=== PATIENT | female | born 1980 | race Caucasian/White ===

== ENCOUNTER 2018-02-21 12:41 | Outpatient (CLI) | payer OTHER ==
--- NOTE | 2018-02-21 15:02 | ULT ---
LEFT BREAST ULTRASOUND: Date: 02/21/18 HISTORY: Palpable area in the left breast x8 years. Area is fluctuant and varies with patient's menstrual cycl e. COMPARISON: None. FINDINGS: Targeted sonographic imaging of the left breast is performed. Static images are reviewed. Real-time i maging was performed in the presence of a radiologist. FINDINGS: Static and real-time imaging demonstrated normal breast parenchyma. No solid or cystic masses. No dis tortion or shadowing. IMPRESSION: BIRADS 2: Benign Finding(s). RECOMMENDATION: Patient to return at age 40 for routine screening mammography. With regard to the palpable focus, fur ther evaluation, including additional imaging and/or biopsy, can be based on clinical findings/suspic ion. POS: [facility]
== END 2018-02-21 12:42 | disposition home or self-care (01) ==
LOC: BICMAMMO 12:41
PROVIDERS: ATTEND Obstetrics & Gynecology
DX: N63.0 Unspecified lump in unspecified breast (principal); Z80.3 Family history of malignant neoplasm of breast
CPT/HCPCS: 77066; G0279

== ENCOUNTER 2018-05-28 13:17 | Emergency (ER) | payer OTHER ==
[2018-05-28] MEDS ORDERED: Metoprolol Tartrate 5 MG/5 ML VIAL ONE (13:45)
[2018-05-28 14:14] LABS: ALT (SGPT) 31 U/L (8-55); AST (SGOT) 22 U/L (5-34); Albumin 4.1 g/dL (3.5-5.0); Alkaline Phosphatase 96 U/L (40-150); Anion Gap 14 mmol/L (10-20); BUN (Urea Nitrogen) 7 mg/dL (7.0-18.7); Bilirubin, Total 0.4 mg/dL (0.2-1.2); Calc. Creatinine Clearance 0 mL/min (70-130); Carbon Dioxide 23 mmol/L (22-29); Chloride 107 mmol/L (98-107); Estimated GFR-MDRD 81; Globulin 3.3 g/dL (2.4-3.5); Glucose 98 mg/dL (70-105); Potassium 3.6 mmol/L (3.5-5.1); Protein, Total 7.4 g/dL (6.0-8.3); Sodium 140 mmol/L (136-145)
[2018-05-28 14:40] LABS: #Basophils 0.1 thou/uL (0.0-0.2); #Eosinphils 0.2 thou/uL (0.0-0.7); #Monocytes 0.7 thou/uL (0.11-0.59); #Neutrophils 4.5 thou/uL (1.40-6.50); %Basophils 0.6 % (0.0-1.0); %Eosinophils 1.9 % (0.0-10.0); %Lymphocytes 35.5 % (21.0-51.0); %Monocytes 8.3 % (0.0-10.0); %Neutrophils 53.7 % (42.0-75.0); Hemoglobin 14.7 g/dL (12.0-16.0); Mean Corpuscular HGB CONC 33.7 g/dL (32.0-36.0); Mean Corpuscular Hemoglobin 31.5 pg (27.0-31.0); Mean Corpuscular Volume 93.7 fL (78.0-98.0); Mean Platelet Volume 9.3 fL (7.4-10.4); Platelet Count 207 thou/uL (130-400); RBC Distribution Width 11.5 % (11.5-14.5); Red Blood Cell (RBC) Count 4.65 mill/uL (4.20-5.40); White Blood Cell (WBC) Count 8.4 thou/uL (4.8-10.8)
== END 2018-05-28 14:53 | disposition home or self-care (01) ==
LOC: SCSER 13:17
DX: R00.0 Tachycardia, unspecified (principal); E78.5 Hyperlipidemia, unspecified; Z79.899 Other long term (current) drug therapy
CPT/HCPCS: 80053; 84443; 84484; 85025; 93005; 96361; 96374

== ENCOUNTER 2022-01-04 14:16 | Outpatient (CLI) | payer BC | END 2022-01-04 14:17 | disposition home or self-care (01) | LOC: BICMAMMO 14:16 | PROVIDERS: ATTEND Family Medicine | DX: Z12.31 Encounter for screening mammogram for malignant neoplasm of breast (principal) | CPT/HCPCS: 77063; 77067 ==

== ENCOUNTER 2022-07-15 07:52 | Emergency (ER) | payer BC ==
[2022-07-15] MEDS ORDERED: Ketorolac Tromethamine 30 MG/ML VIAL ONE (08:31)
[2022-07-15 10:18] LABS: Bilirubin Negative (Negative); Blood, Urine 3+ (Negative); Clarity Clear (Clear); Glucose, Urine (Dipstick) Normal (Negative); Ketone, Urine Negative (Negative); Leukocyte Negative Leu/uL (Negative); Nitrite Negative (Negative); Protein, Urine (Dipstick) 20 mg/dL (Neg-Trace); RBC/HPF Greater than 50 HPF (0-3); Squamous Epithelial 0-3 HPF (0-3); Urobilinogen Normal mg/dL (Less than 2); WBC/HPF 0-3 HPF (0-3)
[2022-07-15 10:19] LABS: Bacteria/HPF 1+ HPF (None Seen)
[2022-07-15 10:20] LABS: Pregnancy Test - Urine (BHCG) Negative (Negative); Pregu Control Background? CLEAR/WHITE (CLR/WHITE); Pregu Control Bar Appear? YES (CONTROL BAR)
== END 2022-07-15 10:42 | disposition home or self-care (01) ==
LOC: ERS 07:52
DX: N20.0 Calculus of kidney (principal); E78.5 Hyperlipidemia, unspecified; Z79.899 Other long term (current) drug therapy
CPT/HCPCS: 81003; 81015; 81025; 96372; 99284; J1885

== ENCOUNTER 2023-03-08 10:43 | Outpatient (CLI) | payer BC | END 2023-03-08 10:44 | disposition home or self-care (01) | LOC: BICMAMMO 10:43 | PROVIDERS: ATTEND Family Medicine | DX: Z12.31 Encounter for screening mammogram for malignant neoplasm of breast (principal); Z80.3 Family history of malignant neoplasm of breast | CPT/HCPCS: 77063; 77067 ==

== ENCOUNTER 2023-03-21 07:37 | Outpatient (CLI) | payer BC | END 2023-03-21 07:38 | disposition home or self-care (01) | LOC: BICCT 07:37 | PROVIDERS: ATTEND Family Medicine | DX: R10.9 Unspecified abdominal pain (principal); J84.10 Pulmonary fibrosis, unspecified; M89.9 Disorder of bone, unspecified | CPT/HCPCS: 74178 ==

== ENCOUNTER 2023-04-03 08:39 | Outpatient (CLI) | payer BC | END 2023-04-03 08:40 | disposition home or self-care (01) | LOC: NM 08:39 | PROVIDERS: ATTEND Family Medicine | DX: M89.9 Disorder of bone, unspecified (principal) | CPT/HCPCS: 78306; A9503 ==